=== PATIENT | male | born 2005 | race Caucasian/White ===

== ENCOUNTER 2023-10-04 21:51 | Outpatient (REF) | payer OTHER, SELFPAY ==
[2023-10-08 13:20] LABS: Hemoglobin S Screen Negative (Negative)
== END 2023-10-04 21:52 | disposition home or self-care (01) ==
LOC: LBN 21:51
PROVIDERS: Visit Provider Physician Assistant
DX: Z13.0 Encounter for screening for diseases of the blood and blood-forming organs and certain disorders involving the immune mechanism (principal)
CPT/HCPCS: 85660